=== PATIENT | female | born 1985 | race Caucasian/White ===

== ENCOUNTER 2017-05-09 11:10 | Observation (INO) | payer OTHER ==
[2017-05-09] MEDS ORDERED: HYDROmorphONE/DILAUDID 1 MG/ML INJ IVP ONE ×2 (11:34→12:19)
[2017-05-09] MEDS ORDERED: NS 1,000 ML IV ONE (11:34)
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
[2017-05-09 11:51] LABS: % IMMATURE GRANULYOCYTES 1.6 % (0.0-1.1); ABSOLUTE IMMATURE GRANULOCYTES 0.26 10^3/uL (0.00-0.10); ADD DIFF? NO; ADD MORPH? NO; ADD SCAN? NO; ATYPICAL LYMPHOCYTE FLAG 10 (0-99); FRAGMENT RBC FLAG 0 (0-99); HEMATOCRIT 43.2 % (38.0-47.0); HEMOGLOBIN 15.2 g/dL (12.6-16.3); LEFT SHIFT FLG 10 (0-99); LIPEMIA HEMOLYSIS FLAG 90 (0-99); MEAN CELL HEMOGLOBIN 31.5 pg (27.9-34.1); MEAN CELL HEMOGLOBIN CONCENTR. 35.2 g/dL (32.4-36.7); MEAN CELL VOLUME 89.6 fL (81.5-99.8); MEAN PLATELET VOLUME 10.7 fL (8.7-11.7); PLATELET CLUMPS FLAG 0 (0-99); PLATELET COUNT 238 10^3/uL (150-400); RED BLOOD CELL COUNT 4.82 10^6/uL (4.18-5.33); RED CELL DISTRIBUTION WIDTH 13.1 % (11.5-15.2)
[2017-05-09 12:01] LABS: INR 1.07 (0.83-1.16); PROTIME(PATIENT) 13.8 SEC (12.0-15.0)
[2017-05-09 12:09] LABS: ANION GAP 12 mEq/L (8-16); CALCIUM 9.8 mg/dL (8.5-10.4); CARBON DIOXIDE 22 mEq/l (22-31); CHLORIDE 105 mEq/L (97-110); CREATININE 0.8 mg/dL (0.6-1.0); GLOMERULAR FILTRATION RATE > 60; GLUCOSE 103 mg/dL (70-100); POTASSIUM 4.6 mEq/L (3.5-5.2); SODIUM 139 mEq/L (134-144)
[2017-05-09] MEDS ORDERED: LET GEL TOPICAL 1 EA SYR TP ONE (12:38)
[2017-05-09] MEDS ORDERED: ACETAMINOPHEN 325 MG TAB PO PRN (14:04)
[2017-05-09] MEDS ORDERED: ONDANSETRON 4 MG/2 ML VIAL IVP PRN (14:04)
[2017-05-09] MEDS ORDERED: D5W 1/2 NS 1,000 ML IV SCH (14:15)
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
[2017-05-09] MEDS: HYDROCODONE/APAP 5/325 TAB PO PRN (18:26)
[2017-05-09] MEDS: CHLORHEXIDINE GLUCONATE 15 ML UDL PO SCH (20:17)
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
[2017-05-10] MEDS: HYDROCODONE/APAP 5/325 TAB PO PRN ×2 (01:08→10:01)
[2017-05-10] MEDS ORDERED: METHOCARBAMOL 750 MG TAB PO PRN (06:30)
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
[2017-05-10] MEDS ORDERED: IBUPROFEN 600 MG TAB PO PRN (08:37)
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
[2017-05-10] MEDS ORDERED: SENNOSIDES/DOCUSATE SODIUM TAB PO SCH (09:00)
[2017-05-10] MEDS: CHLORHEXIDINE GLUCONATE 15 ML UDL PO SCH (10:01)
[2017-05-10 11:25] VITALS: RESP 14
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
[2017-05-10 15:25] VITALS: BP 113/64; PULSE 56; TEMP 97.9; O2SAT 93
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
[2017-05-10] MEDS ORDERED: FLU VACC QS 2017-18 (3YR+)/PF 0.5 ML SYR (FLUARIX QUAD) IM ONE (17:51)
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
== END 2017-05-10 18:42 | disposition home or self-care (01) ==
LOC: INTOOBSV 15:46 → F3N 16:57
PROVIDERS: ADMIT Surgery; ATTEND Surgery
PROC: 2W3DX1Z Immobilization of Left Lower Arm using Splint (ICD-10-PCS; principal; 2017-05-09)
PROC: 3E0337Z Introduction of Electrolytic and Water Balance Substance into Peripheral Vein, Percutaneous Approach (ICD-10-PCS; 2017-05-09)
DX: S12.040A Displaced lateral mass fracture of first cervical vertebra, initial encounter for closed fracture (principal); S22.060A Wedge compression fracture of T7-T8 vertebra, initial encounter for closed fracture; S22.040A Wedge compression fracture of fourth thoracic vertebra, initial encounter for closed fracture; S22.080A Wedge compression fracture of T11-T12 vertebra, initial encounter for closed fracture; S52.252A Displaced comminuted fracture of shaft of ulna, left arm, initial encounter for closed fracture; S06.0X0A Concussion without loss of consciousness, initial encounter; S02.118A Other fracture of occiput, unspecified side, initial encounter for closed fracture; S50.11XA Contusion of right forearm, initial encounter; S51.011A Laceration without foreign body of right elbow, initial encounter; S01.512A Laceration without foreign body of oral cavity, initial encounter; T14.8XXA Other injury of unspecified body region, initial encounter; R40.2412 Glasgow coma scale score 13-15, at arrival to emergency department; Y93.55 Activity, bike riding; V18.0XXA Pedal cycle driver injured in noncollision transport accident in nontraffic accident, initial encounter; Y92.482 Bike path as the place of occurrence of the external cause; Z23 Encounter for immunization
CPT/HCPCS: 29105; 70450; 71101; 72125; 72141; 72146; 73060; 73080; 73090; 73110; 90471; 92523; 96361; 96374; 96376; 97162; 97165; 99291; G0378; A4565; G0008; J1170

== ENCOUNTER → 2017-06-22 | Outpatient (CLI) | payer OTHER | LOC: FIMAGING 07:50 | PROVIDERS: ATTEND Physician Assistant Surgical | DX: S22.080A Wedge compression fracture of T11-T12 vertebra, initial encounter for closed fracture (principal) ==